=== PATIENT | male | born 1990 | race Caucasian/White ===

== ENCOUNTER 2018-03-07 16:09 | Emergency (ER) | payer OTHER | END 2018-03-07 20:00 | disposition home or self-care (01) | LOC: FTE 16:09 | DX: R07.89 Other chest pain (principal) | CPT/HCPCS: 71045; 93005; 99284-25 ==

== ENCOUNTER 2019-04-13 11:13 | Emergency (ER) | payer OTHER | END 2019-04-13 13:39 | disposition home or self-care (01) | LOC: FTE 11:13 | DX: M25.462 Effusion, left knee (principal) | CPT/HCPCS: 29505; 73562; 99283-25 ==